=== PATIENT | female | born 1935 | race Caucasian/White ===

== ENCOUNTER → 2018-07-18 | Day surgery (SDC) | payer MEDICARE, OTHER ==
[2018-07-16 16:52] LABS: BASOPHILS # (AUTO) 0.1 (0.0-0.1); BASOPHILS % 0.6 % (0.0-1.0); EOSINOPHILS # (AUTO) 0.3 (0.0-0.4); EOSINOPHILS % 3.3 % (0.0-6.0); HEMATOCRIT 32.1 % (34.2-44.1); HEMOGLOBIN 10.1 g/dL (12.0-16.0); LYMPHOCYTES # (AUTO) 2.1 (1.0-3.2); LYMPHOCYTES % 25.4 % (18.0-39.1); MEAN CORPUSCULAR HEMOGLOBIN 31.9 pg (28-32); MEAN CORPUSCULAR HGB CONC 31.5 g/dL (31-35); MEAN CORPUSCULAR VOLUME 101.3 fL (81-99); MONOCYTES # (AUTO) 0.7 (0.2-0.8); MONOCYTES % 8.9 % (4.4-11.3); NEUTROPHILS # (AUTO) 5.1 (2.1-6.9); NEUTROPHILS % 61.4 % (38.7-80.0); PLATELET COUNT 396 x10e3/uL (140-360); RED BLOOD COUNT 3.17 x10e6/uL (3.6-5.1); RED CELL DISTRIBUTION WIDTH 13.2 % (11.7-14.4)
[~2018-07-18] MED LIST: ASPIR 8181 MG PO; BENZTROPINE MESY1 MG PO; BISACODYL5 MG PO; CARBAMAZEPINE200 MG PO; CEROVITE SENIO1 EACH PO; FENTANYL CITRATE/PF 100MCG/2 ML INJ ONE; FIBER LAXATIVE625 MG PO; KEFLEX500 MG PO; LABETALOL HCL 20 MG/4 ML SYRINGE IV ONE; MAX TOP; MELOXICAM7.5 MG PO; METFORMIN HCL500 MG PO; METHOCARBAMOL750 MG PO; NIFEDIPINE ER30 M1 PO; NORCO 7.5-3251 EACH PO; OMEGA 3 1,0001 EACH PO; OMEPRAZOLE40 MG PO; PROBIOTIC & AC1 EACH PO; PROPOFOL IV EMULSION 10 MG/ML 20 ML VIAL ONE; RISPERIDONE1 MG PO; TIZANIDINE HCL4 MG PO; TUMS PO; TYLENOL PO; ULTRAM 50MG50 MG PO; VIT C PO; VIT D3 PO; VOLTAREN100 GM TOP; [UNRECOGNIZED DRUG - OTHER] PO; [UNRECOGNIZED DRUG - OTHER] PO
--- OUTSIDE RECORDS SUMMARY | 2018-07-18 06:13 | XMS REPORT ---
[facility] Address Unknown Phone Unavailable Care Team Providers Care Sap Pi Architect Name Role Phone Kendrick LUND Unavailable Unavailable Problems This patient has no known problems. Allergies, Adverse Reactions, Alerts This patient has no known allergies or adverse reactions. Medications This patient has no known medications. Results Test Description Test Time Test Comments Text Results Atomic Results Result Comments HIPS BILAT TWO VWS(+/- PELVIS) [place] [id number] Patient Name: JERICA PILLAI V MR #: [id number] : 1935 Age/Sex: 81/F Req #: [id number] Adm Physician: Ordered by: SHARDA LUND MD Report #: [id number] Location: [facility] Room/Bed: Procedure: [id number] DX/HIPS BILAT TWO VWS(+/- PELVIS) Exam Date: Exam Time: REPORT STATUS: Signed PROCEDURE: HIPS BILAT TWO VWS(+/- PELVIS) TECHNIQUE: Single AP view of the pelvis. Right hip 2 views. Left hip 2 views INDICATION: Trauma. COMPARISON: None. FINDINGS: No fractures or dislocations. Mild degenerative changes in both SI joints. Unremarkable bilateral hips. No abnormal soft tissue swelling. CONCLUSION: Unremarkable pelvis and bilateral hips. Dictated by: Job Todd M.D. on 04/06/2017 at 17:23 Electronically approved by: Job Todd M.D. on 04/06/2017 at 17:23 Dictated By: JOB TODD MD 22 Transcribed By: RANDA on 04/06/171722 COPY TO: SHARDA LUND MD
--- OUTSIDE RECORDS SUMMARY | 2018-07-18 06:13 | XMS REPORT | Summary of Care ---
Author Author Serafin Matson, Fabiana Encinas Unknown Address Unknown Phone Unavailable Care Team Providers Care Dialysis Registered Nurse Name Role Phone JESSICA PRIETO M.D. 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 * Refills: 0 Active RisperiDONE 1 MG Oral Tablet TAKE 1 TABLET DAILY * Refills: 0 Active Vitamin D3 1000 UNIT Oral Capsule TAKE 1 CAPSULE DAILY * Refills: 0 Active [place]-3 Fish Oil CAPS TAKE 1 CAPSULE DAILY * Refills: 0 Active Vitamin C 1000 MG Oral Tablet TAKE 1 TABLET DAILY. * Refills: 0 Active Aspirin 81 MG TABS TAKE 1 TABLET DAILY. * Refills: 0 Active Benztropine Mesylate 1 MG Oral Tablet TAKE 1 TABLET TWICE DAILY NEEDED. * Refills: 0 Active CarBAMazepine 200 MG Oral Tablet TAKE 1 TABLET TWICE DAILY. * Refills: 0 Active Cerovite Senior TABS TAKE 1 TABLET DAILY. * Refills: 0 Active Diclofenac Sodium 1 % Transdermal Gel APPLY TO LOWER EXTREMITIES, 4 GM OF GEL TO AFFECTED AREA 4 TIMES DAILY. DO NOT APPLY MORE THAN 16 GM DAILY TO ANY ONE AFFECTED JOINT. * Refills: 0 Active 100 GM Tube Probiotic TBEC * Refills: 0 Active Dulcolax 5 MG Oral Tablet Delayed Release TAKE 1 TABLET DAILY NEEDED. * Refills: 0 Active Hydrocodone-Acetaminophen 5-325 MG Oral Tablet TAKE 1 TABLET EVERY 6 HOURS NEEDED. * Refills: 0 Active Tylenol 325 MG Oral Tablet * Refills: 0 Active Methocarbamol 500 MG Oral Tablet TAKE 1 TAB Q8HRS PRN * Refills: 0 Active TraMADol HCl - 50 MG Oral Tablet * Refills: 0 Active TiZANidine HCl - 2 MG Oral Capsule * Refills: 0 Active Mupirocin 2 % External Ointment APPLY SPARINGLY TO AFFECTED AREA(S) TWICE DAILY * Quantity: 1 Refills: 6 JESSICA PRIETO M.D. * Start : 11-Jul-2018 Active 22 GM Tube Allergies and Adverse Reactions Name Dates Details Depakote (Allergy) Status: Active Penicillins (Allergy) Status: Active Past Medical History Name Dates Details History of cataract (V12.49, Z86.69) Status: Resolved History of chronic fatigue (V13.89, Z87.898) Status: Resolved History of Depressive disorder (311, F32.9) Status: Resolved History of diabetes mellitus (V12.29, Z86.39) Status: Resolved Procedures Procedure Dates Details Procedures not documented Immunization Name Dates Details Immunizations not documented Family History Name Dates Details No significant family history (V49.89, Z78.9) Comments: Family History Status: Active Social History Name Dates Details - Status: Name Dates Details Never smoker Vital Signs Date Test Result Details [id number] BP Systolic 178 mm[Hg] Status: Comments: Location: [place]; BP Diastolic 76 mm[Hg] Status: Comments: Location: [place]; Height 61 in Status: Weight 158 lb Status: Body Mass Index Calculated 29.85 kg/m2 Status: Body Surface Area Calculated 1.71 m2 Status: Temperature 98.9 f Status: Comments: Method: Oral Heart Rate 92 /min Status: Comments: Location: L Brachial Artery; Results Date Description Value Details Results not documented Plan of Care Name Dates Details Planned Observations Planned Goals not documented Planned Encounters Appointment; JESSICA PRIETO M.D. On: 15-Aug-2018 14:30 Interventions Provided Medication Changes* Mupirocin 2 % External Ointment - Start Plan* 1. It is slowly healing. Will need to continue on the ointment. Fu in 1 month. Instructions Name Dates Details Instructions not documented Encounters Appointment; JESSICA PRIETO M.D. Encounter Diagnosis: Problem not documented On: 26-Mar-2018 13:00 Appointment; DANAY DIAZ M.D. Encounter Diagnosis: Problem not documented On: 28-Mar-2018 15:00 Appointment; DANAY DIAZ M.D. Encounter Diagnosis: Problem not documented On: 11-Apr-2018 10:00 Appointment; DANAY DIAZ M.D. Encounter Diagnosis: Problem not documented On: 18-Apr-2018 15:45 Appointment; DANAY DIAZ M.D. Encounter Diagnosis: Problem not documented On: 02-May-2018 14:45 Appointment; JESSICA PRIETO M.D. Encounter Diagnosis: Problem not documented On: 06-May-2018 14:00 Appointment; JESSICA PRIETO M.D. Encounter Diagnosis: Problem not documented On: 10-May-2018 13:45 Appointment; DANAY DIAZ M.D. Encounter Diagnosis: Problem not documented On: 16-May-2018 14:45 Appointment; JESSICA PRIETO M.D. Encounter Diagnosis: Problem not documented On: 17-May-2018 13:45 Appointment; JESSICA PRIETO M.D. Encounter Diagnosis: Problem not documented On: 30-May-2018 15:15 Appointment; JESSICA PRIETO M.D. Encounter Diagnosis: Problem not documented On: 11-Jul-2018 15:00
--- OUTSIDE RECORDS SUMMARY | 2018-07-18 06:13 | XMS REPORT | Clinical Summary ---
Author Author [facility] [employer] [facility] [employer] Address Unknown Phone Unavailable Care Team Providers Care Ramp Flight Attendant Name Role Phone Michelle Salazar MD PCP Allergies Comments Active Allergy Reactions Severity Noted Date dizzy Divalproex Other (See 04/13/2017 Comments) Penicillins Hives 04/13/2017 Medications End Date Status Medication Sig Dispensed Refills Start Date Active cephalexin (KEFLEX) 500 Take 500 mg 0 MG capsule by mouth 2 (two) times a day. Active metFORMIN (GLUCOPHAGE) Take 500 mg 0 500 mg tablet by mouth daily with breakfast. Active risperiDONE (RisperDAL) 1 Take 1 mg by 0 MG tablet mouth daily. Active benztropine (COGENTIN) 1 Take 1 mg by 0 MG tablet mouth 2 (two) times a day. Active carBAMazepine (TEGretol) Take 200 mg 0 200 mg tablet by mouth 2 (two) times a day. Active NIFEdipine CC (ADALAT CC) Take 60 mg by 0 60 MG 24 hr tablet mouth daily. Active tiZANidine (ZANAFLEX) 2 Take 2 mg by 0 MG tablet mouth 2 (two) times a day as needed for muscle spasms. Active traMADol (ULTRAM) 50 mg Take 50 mg by 0 tablet mouth every 6 (six) hours as needed for moderate pain. Active lubiprostone (AMITIZA) 24 Take 24 mcg 0 MCG capsule by mouth as needed for constipation. 08/15/2017 meloxicam (MOBIC) 7.5 mg Take 1 tablet 10 tablet 0 tablet (7.5 mg 8 total) by mouth daily as needed for mild pain or moderate pain for up to 30 days. 07/19/2017 acetaminophen-codeine Take 1 tablet 10 tablet 0 (TYLENOL WITH CODEINE #3) by mouth 8 300-30 mg per tablet every 6 (six) hours as needed for mild pain or moderate pain for up to 3 days. 07/23/2017 nitrofurantoin, Take 1 14 capsule 0 macrocrystal-monohydrate, capsule (100 8 (MACROBID) 100 MG capsule mg total) by mouth 2 (two) times a day for 7 days. 08/30/2017 lidocaine (LIDODERM) 5 % Place 1 patch 30 patch 0 on the skin 8 daily for 30 days. Remove & Discard patch within 12 hours or as directed by 09/01/2017 hydrocortisone-pramoxine Insert into 0 (ANALPRAM-HC) 2.5-1 % the rectum 3 8 rectal cream (three) times a day for 30 days. Active Problems Problem Noted Date Lumbar compression fracture 07/27/2017 Compression fracture of body of thoracic vertebra 07/25/2017 Encounters Care Team Description Date Type Specialty Thomas Romero MD 07/27/2017 Anesthesia General Surgery Event Trent Smith MD Al-Lahiq, Maha, MD Yerramadha, Muralidhar Reddy, MD Compression fracture of body of thoracic vertebra (Primary Dx); Essential hypertension; Thoracic compression fracture, closed, initial encounter 07/25/2017 [facility] General Surgery - Encounter 08/02/2017 after 07/17/2017 Immunizations Name Dates Previously Given Next Due Tdap 07/16/2017 Social History Date Tobacco Use Types Packs/Day Years Used Never Smoker Smokeless Tobacco: Never Used Alcohol Use Drinks/Week oz/Week Comments No Sex Assigned at Date Recorded Not on file Industry Job Start Date Occupation Not on file Not on file Not on file Travel End Travel History Travel Start No recent travel history available. Last Filed Vital Signs Time Taken Vital Sign Reading 08/02/2017 7:26 PM [facility] Blood Pressure 144/69 08/02/2017 7:26 PM [facility] Pulse 98 08/02/2017 7:26 PM [facility] Temperature 37.1 C (98.8 F) 08/02/2017 7:26 PM [facility] Respiratory Rate 13 08/02/2017 7:53 PM [facility] Oxygen Saturation 95% - Inhaled Oxygen - Concentration 07/25/2017 11:00 PM [facility] Weight 59.9 kg (132 lb) 07/25/2017 11:00 PM [facility] Height 154.9 cm (5' 1") 07/25/2017 11:00 PM [facility] Body Mass Index 24.94 Plan of Treatment Health Maintenance Due Date Last Done Comments SHINGLES VACCINES (1 of 1987 2) PNEUMOCOCCAL 2002 POLYSACCHARIDE VACCINE AGE 65 AND OVER PNEUMOCOCCAL-13 2002 INFLUENZA VACCINE 01/30/2018 Implants Device Identifier Shelf Expiration Date Model / Serial / Lot Implanted Type Area Manufactur er [id number] / / Kit Mixer Bone Cmnt Kyphon [employer] Surgical N/A: N/A KYPHON DIV Hv-R - [id number] Implants; OF Implanted: 07/27/2017 (Quantity not Expanders; [employer] on file) Extenders; SPINE Surgical Wires Procedures Comments Procedure Name Priority Date/Time Associated Diagnosis POC GLUCOSE Routine 08/02/2017 8:40 PM [facility]ASS [facility] POC GLUCOSE Routine 08/02/2017 5:37 PM [facility] POC GLUCOSE Routine 08/02/2017 12:18 PM [employer] POC GLUCOSE Routine 08/02/2017 6:00 AM [facility]ASS [facility] POC GLUCOSE Routine 08/01/2017 9:25 PM [employer] POC GLUCOSE Routine 08/01/2017 4:13 PM [facility] POC GLUCOSE Routine 08/01/2017 12:23 PM [employer] POC GLUCOSE Routine 08/01/2017 5:46 AM [facility] POC GLUCOSE Routine 07/31/2017 9:05 PM [employer] POC GLUCOSE Routine 07/31/2017 5:44 PM [employer] POC GLUCOSE Routine 07/31/2017 11:47 AM [facility] POC GLUCOSE Routine 07/31/2017 6:01 AM [facility] POC GLUCOSE Routine 07/30/2017 7:59 PM [facility] POC GLUCOSE Routine 07/30/2017 4:36 PM [facility] POC GLUCOSE Routine 07/30/2017 11:50 AM [facility] POC GLUCOSE Routine 07/30/2017 6:05 AM [facility] ZZESTIMATED GFR Routine 07/30/2017 5:12 AM [facility] HC COMPLETE BLD COUNT Routine 07/30/2017 W/AUTO DIFF 5:12 AM [facility] BASIC METABOLIC PANEL Routine 07/30/2017 5:12 AM [facility] POC GLUCOSE Routine 07/29/2017 9:21 PM [facility] POC GLUCOSE Routine 07/29/2017 6:02 PM [employer] POC GLUCOSE Routine 07/29/2017 11:51 AM [facility] POC GLUCOSE Routine 07/29/2017 6:23 AM [facility] POC GLUCOSE Routine 07/28/2017 8:23 PM [facility] POC GLUCOSE Routine 07/28/2017 4:52 PM [facility] POC GLUCOSE Routine 07/28/2017 12:17 PM [facility] POC GLUCOSE Routine 07/28/2017 6:15 AM [facility] POC GLUCOSE Routine 07/27/2017 5:16 PM [facility]ASS [facility] IR KYPHOPLASTY FST VERT Routine 07/27/2017 BODY THORA 3:45 PM [facility]ASS [facility] POC GLUCOSE Routine 07/27/2017 11:46 AM [facility]ASS [facility] POC GLUCOSE Routine 07/27/2017 5:41 AM [facility]ASS [facility] ZZESTIMATED GFR STAT 07/27/2017 5:12 AM [facility]ER PROTHROMBIN TIME WITH INR STAT 07/27/2017 5:12 AM [facility] BASIC METABOLIC PANEL STAT 07/27/2017 5:12 AM [facility] HC COMPLETE BLD COUNT STAT 07/27/2017 W/AUTO DIFF 5:12 AM [facility] THYROID STIMULATING Routine 07/27/2017 HORMONE 5:12 AM [facility] LIPID PANEL Routine 07/27/2017 5:12 AM [facility] HEMOGLOBIN A1C Routine 07/27/2017 5:12 AM [facility] POC GLUCOSE Routine 07/26/2017 8:29 PM [facility] URINALYSIS SCREEN AND Routine 07/26/2017 MICROSCOPY, WITH REFLEX 7:02 PM [facility] TO CULTURE GRAM STAIN Routine 07/26/2017 7:02 PM [facility] URINE CULTURE Routine 07/26/2017 7:02 PM [facility] XR THORACIC SPINE 3 VW Routine 07/26/2017 6:46 PM [facility] MRI THORACIC SPINE W WO Routine 07/26/2017 CONTRAST 6:35 PM [facility] MRI LUMBAR SPINE W WO Routine 07/26/2017 CONTRAST 6:30 PM [facility] POC GLUCOSE Routine 07/26/2017 4:01 PM [facility] POC GLUCOSE Routine 07/26/2017 12:54 PM [facility] ECG ED PRELIMINARY Routine 07/25/2017 INTERPRETATION 9:47 PM [facility] ECG 12-LEAD STAT 07/25/2017 9:19 PM [facility] ZZESTIMATED GFR STAT 07/25/2017 8:54 PM [facility] COMPREHENSIVE METABOLIC STAT 07/25/2017 PANEL 8:54 PM [facility] PARTIAL THROMBOPLASTIN STAT 07/25/2017 TIME (PTT) 8:54 PM [facility] PROTHROMBIN TIME WITH INR STAT 07/25/2017 8:54 PM [facility] HC COMPLETE BLD COUNT STAT 07/25/2017 W/AUTO DIFF 8:54 PM [facility]ASS [facility] TYPE AND SCREEN Routine 07/25/2017 8:[address] LUMBAR SPINE WO STAT 07/25/2017 CONTRAST 7:[address] THORACIC SPINE WO STAT 07/25/2017 CONTRAST 7:35 PM [facility] after 07/17/2017 Results * POC glucose (08/02/2017 8:40 PM GLASS [facility]KER) Only the most recent of 30 results within the time period is included. POC glucose 127 (H) 65 - 99 mg/dL [facility] DEPARTMENT OF Comment: PATHOLOGY AND Meter ID: [id number] GENOMIC MEDICINE Neurology Tech: Tai Espinoza Performing Organization Address [facility] Phone Number [facility] [address] [place] [address] [place] [address] PATHOLOGY AND [employer] MEDICINE * Estimated GFR (07/30/2017 5:12 AM GLASS [facility]KER) Only the most recent of 3 results within the time period is included. GFR Non Af Amer 53 (A) mL/min/1.73 m2 [facility] DEPARTMENT OF PATHOLOGY AND GENOMIC MEDICINE GFR Af Amer 65 mL/min/1.73 m2 [facility] DEPARTMENT OF Comment: PATHOLOGY AND Chronic kidney disease: <60 GENOMIC MEDICINE mL/min/1.73m2 Kidney failure: <15 mL/min/1.73m2 The estimated GFR is calculated from the IDMS-traceable Modification of Diet in Renal Disease Equation. The accuracy of the calculation is poor when the creatinine is normal. Calculated values >90 mL/min/1.73m2 are not reported. This equation has not been validated in children (<18 years), women, the elderly (>70 years), or ethnic groups other than Caucasians and Americans. Specimen Plasma specimen Performing Organization Address [facility] Phone Number [facility] [place] [id number] [place] [address] [place] [address] PATHOLOGY AND [employer] MEDICINE * CBC with platelet and differential (07/30/2017 5:12 AM GLASS [facility]KER) Only the most recent of 3 results within the time period is included. WBC 9.90 4.50 - 11.00 k/uL [facility] DEPARTMENT OF PATHOLOGY AND [employer] MEDICINE RBC 3.23 (L) 4.20 - 5.50 m/uL [facility] DEPARTMENT OF PATHOLOGY AND GENOMIC MEDICINE HGB 10.4 (L) 12.0 - 16.0 g/dL [facility] DEPARTMENT OF PATHOLOGY AND GENOMIC MEDICINE HCT 32.2 (L) 37.0 - 47.0 % [facility] DEPARTMENT OF PATHOLOGY AND GENOMIC MEDICINE MCV 99.7 82.0 - 100.0 fL [facility] DEPARTMENT OF PATHOLOGY AND GENOMIC MEDICINE MCH 32.2 27.0 - 34.0 pg [facility] DEPARTMENT OF PATHOLOGY AND GENOMIC MEDICINE MCHC 32.3 31.0 - 37.0 g/dL [facility] DEPARTMENT OF PATHOLOGY AND GENOMIC MEDICINE RDW - SD 46.5 37.0 - 55.0 fL [facility] DEPARTMENT OF PATHOLOGY AND GENOMIC MEDICINE MPV 9.0 8.8 - 13.2 fL [facility] DEPARTMENT OF PATHOLOGY AND GENOMIC MEDICINE Platelet count 431 (H) 150 - 400 k/uL [facility] DEPARTMENT OF PATHOLOGY AND GENOMIC MEDICINE Nucleated RBC 0.00 /100 WBC [facility] DEPARTMENT OF PATHOLOGY AND GENOMIC MEDICINE Neutrophils 66.8 39.0 - 69.0 % [facility] DEPARTMENT OF PATHOLOGY AND GENOMIC MEDICINE Lymphocytes 21.2 (L) 25.0 - 45.0 % [facility] DEPARTMENT OF PATHOLOGY AND GENOMIC MEDICINE Monocytes 8.1 0.0 - 10.0 % [facility] DEPARTMENT OF PATHOLOGY AND GENOMIC MEDICINE Eosinophils 2.9 0.0 - 5.0 % [facility] DEPARTMENT OF PATHOLOGY AND GENOMIC MEDICINE Basophils 0.6 0.0 - 1.0 % [facility] DEPARTMENT OF PATHOLOGY AND GENOMIC MEDICINE Immature granulocytes 0.4Comment: "Immature 0.0 - 1.0 % [facility] DEPARTMENT OF granulocytes" (promyelocytes, PATHOLOGY AND myelocytes, metamyelocytes) [facility] Specimen Blood Performing Organization Address City/State/Zipcode Phone Number [facility] [place] [place] [address] [place] [address] PATHOLOGY AND GENOMIC MEDICINE * Basic metabolic panel (07/30/2017 5:12 AM GLASS [facility]KER) Only the most recent of 2 results within the time period is included. Sodium 137 135 - 148 mEq/L [facility] DEPARTMENT OF PATHOLOGY AND GENOMIC MEDICINE Potassium 4.4 3.5 - 5.0 mEq/L [facility] DEPARTMENT OF PATHOLOGY AND GENOMIC MEDICINE Chloride 97 (L) 98 - 112 mEq/L [facility] DEPARTMENT OF PATHOLOGY AND GENOMIC MEDICINE CO2 28 24 - 31 mEq/L [facility] DEPARTMENT OF PATHOLOGY AND GENOMIC MEDICINE Anion gap 12 7 - 15 mEq/L [facility] DEPARTMENT OF Comment: PATHOLOGY AND Starting from September [facility] , anion gap calculation no longer incorporates potassium. Please note the change. BUN 24 (H) 8 - 23 mg/dL [facility] DEPARTMENT OF PATHOLOGY AND GENOMIC MEDICINE Creatinine 1.0 (H) 0.5 - 0.9 mg/dL [facility] OF PATHOLOGY AND GENOMIC MEDICINE Glucose 108 (H) 65 - 99 mg/dL [facility] OF PATHOLOGY AND GENOMIC MEDICINE Calcium 9.3 8.8 - 10.2 mg/dL [facility] PATHOLOGY AND GENOMIC MEDICINE Specimen Plasma specimen Performing Organization Address City/State/Zipcode Phone Number [facility] [address] [address] PATHOLOGY AND GENOMIC MEDICINE * IR Kyphoplasty Thoracic (07/27/2017 3:45 PM GLASS MAKER) Narrative Performed At EXAMINATION:IR KYPHOPLASTY FST VERT BODY THORA [facility] EXAMINATION:IR KYPHOPLASTY FST VERT BODY THORA COMPARISON:None. CLINICAL HISTORY: Osteoporotic compression fracture of [id number] body not responsive to conservative therapy including bed rest and narcotic pain meds PREOPERATIVE DIAGNOSIS: Osteoporotic compression fracture of T8. POSTOPERATIVE DIAGNOSIS: Same. After discussion of the radiographic findings, along with the risks and benefits of the procedure with the patient and her daughter, the patient wished to proceed. The patient understood the risks and benefits of the procedure. Written informed consent was obtained. Prior to the procedure formal timeout procedure was performed. All elements of maximal sterile barrier technique were utilized. Prior to the procedure the patient was medicated with 600 mg of clindamycin intravenously Study was performed utilizing MAC under the supervision of the attending anesthesiologist TECHNIQUE: The patient was brought to the Fluoroscopy Suite and placed on the fluoroscopy table in prone position. The thoracolumbar region was prepped and draped in standard sterile fashion. Initially severe compressive deformity at T8 in the range of 60% was identified and marked on the skin surface. Transpedicular approach was utilized to access the [id number] compression fracture bilaterally. The skin over the pedicles of [id number] were infiltrated with 1% buffered lidocaine. Deep infiltration into the periosteum was achieved with 0.25% bupivacaine. A 10 gauge entry needle was placed into the posterior aspect of the body of T8 bilaterally via transpedicular approach taking care to avoid broaching the pedicle valdez. Positioning was confirmed in both AP and lateral planes. Bone drills were utilized to create channels through each trocar under continuous fluoroscopic visualization. Following creation of the channels, inflatable balloon tamps were introduced into the vertebral body through each trocar and inflated. No cortical breakthrough identified. Moderate fracture height hoahaoism noted. Subsequently the balloon were deflated and removed. Polymethylmethacrylate (PMMA) was then placed into the vertebral body cavity under continuous fluoroscopic imaging. Approximately 2.5 cc of cement placed. Good cement fill in AP and transverse dimensions with good coverage of the anterior and middle columns of the vertebral body. No extravasation. Following cement placement, the bilateral access trochars were removed and hemostasis was achieved with adequate pressure. Total cement volume placed was 2.5 cc. BLOOD LOSS: Less than 2 cc COMPLICATIONS: None POST-PROCEDURE: All incisions were closed with Steri-Strips and pressure dressing. The patient was then turned supine on their hospital bed. The patient was awake and moving all extremities and at this time showed no neurologic deficit. Total fluoroscopic time was 12minutes and 34 seconds. 20 exposures. Procedure time was 24 minutes. IMPRESSION: Successful uncomplicated fluoroscopic-guided kyphoplasty of [id number] fracture. Adequate cement distribution in the vertebral body without extravasation. Moderate height hoahaoism No complications. [id number] Procedure Note Hm Interface, Radiology Results Incoming - 07/27/2017 6:10 PM GLASS [facility]KER EXAMINATION: IR KYPHOPLASTY FST VERT BODY THORA EXAMINATION: IR KYPHOPLASTY FST VERT BODY THORA COMPARISON: None. CLINICAL HISTORY: Osteoporotic compression fracture of T8 vertebral body not responsive to conservative therapy including bed rest and narcotic pain meds PREOPERATIVE DIAGNOSIS: Osteoporotic compression fracture of T8. POSTOPERATIVE DIAGNOSIS: Same. After discussion of the radiographic findings, along with the risks and benefits of the procedure with the patient and her daughter, the patient wished to proceed. The patient understood the risks and benefits of the procedure. Written informed consent was obtained. Prior to the procedure formal timeout procedure was performed. All elements of maximal sterile barrier technique were utilized. Prior to the procedure the patient was medicated with 600 mg of clindamycin intravenously Study was performed utilizing MAC under the supervision of the attending anesthesiologist TECHNIQUE: The patient was brought to the Fluoroscopy Suite and placed on the fluoroscopy table in prone position. The thoracolumbar region was prepped and draped in standard sterile fashion. Initially severe compressive deformity at T8 in the range of 60% was identified and marked on the skin surface. Transpedicular approach was utilized to access the T8 vertebral compression fracture bilaterally. The skin over the pedicles of T8 level were infiltrated with 1% buffered lidocaine. Deep infiltration into the periosteum was achieved with 0.25% bupivacaine. A 10 gauge entry needle was placed into the posterior aspect of the body of T8 bilaterally via transpedicular approach taking care to avoid broaching the pedicle valdez. Positioning was confirmed in both AP and lateral planes. Bone drills were utilized to create channels through each trocar under continuous fluoroscopic visualization. Following creation of the channels, inflatable balloon tamps were introduced into the vertebral body through each trocar and inflated. No cortical breakthrough identified. Moderate fracture height hoahaoism noted. Subsequently the balloon were deflated and removed. Polymethylmethacrylate (PMMA) was then placed into the vertebral body cavity under continuous fluoroscopic imaging. Approximately 2.5 cc of cement placed. Good cement fill in AP and transverse dimensions with good coverage of the anterior and middle columns of the vertebral body. No extravasation. Following cement placement, the bilateral access trochars were removed and hemostasis was achieved with adequate pressure. Total cement volume placed was 2.5 cc. BLOOD LOSS: Less than 2 cc COMPLICATIONS: None POST-PROCEDURE: All incisions were closed with Steri-Strips and pressure dressing. The patient was then turned supine on their hospital bed. The patient was awake and moving all extremities and at this time showed no neurologic deficit. Total fluoroscopic time was 12 minutes and 34 seconds. 20 exposures. Procedure time was 24 minutes. IMPRESSION: Successful uncomplicated fluoroscopic-guided kyphoplasty of T8 compression fracture. Adequate cement distribution in the vertebral body without extravasation. Moderate height hoahaoism No complications. [id number] Performing Organization Address City/State/Zipcode Phone Number [facility] [address] [place] [address] * Prothrombin time with INR (07/27/2017 5:12 AM GLASS [facility]KER) Only the most recent of 2 results within the time period is included. Prothrombin time 12.2 12.0 - 15.0 sec [facility] DEPARTMENT OF PATHOLOGY AND GENOMIC MEDICINE INR 0.9 [facility] DEPARTMENT OF Comment: PATHOLOGY AND The International Normalized GENOMIC MEDICINE Ratio (INR) is a therapeutic monitoring tool for patients who are stable on oral anticoagulant therapy. An INR of 2.0-3.0 is suggested for deep vein thrombosis/pulmonary embolism. Specimen Blood Performing Organization Address [facility] Phone Number [address] [place] [address] PATHOLOGY AND GENOMIC MEDICINE * Thyroid stimulating hormone (07/27/2017 5:12 AM GLASS MAKER) TSH 4.11 0.27 - 4.20 uIU/mL [facility] DEPARTMENT OF PATHOLOGY AND GENOMIC MEDICINE Specimen Plasma specimen Performing Organization Address [facility] Phone Number [address] [place] [address] PATHOLOGY AND GENOMIC MEDICINE * Hemoglobin A1c (07/27/2017 5:12 AM GLASS [facility]KER) Hemoglobin A1C 4.9 4.0 - 6.0 % [facility] DEPARTMENT OF Comment: PATHOLOGY AND GENOMIC MEDICINE Less than 6% - Goal of therapy for Type II Diabetes Less than 7%-Goal of therapy for Type I Diabetes Less than 8%-Accepta ble control for Type I or Type II Diabetes Greater than 8%-Unacceptabl e control; action indicated. ([id number]) Specimen Blood Performing Organization Address [facility] Phone Number [address] [place] [id number] PATHOLOGY AND GENOMIC MEDICINE * Lipid panel (07/27/2017 5:12 AM GLASS MAKER) Cholesterol 286 (H) <200 mg/dL [facility] DEPARTMENT OF PATHOLOGY AND GENOMIC MEDICINE Triglycerides 248 (H) <150 mg/dL [facility] DEPARTMENT OF PATHOLOGY AND GENOMIC MEDICINE HDL cholesterol 52 >40 mg/dL [facility] DEPARTMENT OF PATHOLOGY AND GENOMIC MEDICINE LDL cholesterol 203 (H)Comment: Result <100 mg/dL [facility] DEPARTMENT OF obtained by direct LDL PATHOLOGY AND measurement GENOMIC MEDICINE Lipid panel SeeBelow [facility] DEPARTMENT OF interpretation Comment: PATHOLOGY AND Total Cholesterol GENOMIC MEDICINE (mg/dL) <200 Desirable 200-239Borderline -high >=240High Triglycerides (mg/dL) <150 Normal 150-199Borderline -high 200-499High >=500Very high HDL Cholesterol (mg/dL) <40Low (male) <40Low (female) LDL Cholesterol (mg/dL) <100 Optimal 100-129Near or above optimal 130-159Borderline -high 160-189High >=190Very high Risk Catergories that modify LDL goals. Risk Catergories LDL goal (mg/dL) CHD and CHD risk equivalent<100 (10-year risk >20%) Multiple (2+) risk factors <130 (10-year risk=<20%) 0-1 risk factors <160 (<10-year risk) Defining levels of lipids in metabolic syndrome Triglycerides >=150 mg/dL HDL Cholesterol Men <40 mg/dL Women <40 mg/dL Non-HDL cholesterol is a second target for therapy in persons with high triglycerides (>=200 mg/dL) Specimen Plasma specimen Performing Organization Address City/State/Zipcode Phone Number [facility] [address] [place] [address] PATHOLOGY AND GENOMIC MEDICINE * Urinalysis screen and microscopy, with reflex to culture (07/26/2017 7:02 PM GLASS MAKER) Specimen site Clean catch [facility] DEPARTMENT OF PATHOLOGY AND GENOMIC MEDICINE Color, UA Yellow [facility] DEPARTMENT OF PATHOLOGY AND GENOMIC MEDICINE Appearance, UA Clear [facility] DEPARTMENT OF PATHOLOGY AND GENOMIC MEDICINE Specific gravity, UA 1.015 1.001 - 1.035 [facility] DEPARTMENT OF PATHOLOGY AND GENOMIC MEDICINE pH, UA 6.0 5.0 - 8.5 [facility] DEPARTMENT OF PATHOLOGY AND GENOMIC MEDICINE Protein, UA Negative Negative [facility] DEPARTMENT OF PATHOLOGY AND GENOMIC MEDICINE Glucose, UA Negative Negative [facility] DEPARTMENT OF PATHOLOGY AND GENOMIC MEDICINE Ketones, UA Negative Negative [facility] DEPARTMENT OF PATHOLOGY AND GENOMIC MEDICINE Bilirubin, UA Negative Negative [facility] DEPARTMENT OF PATHOLOGY AND GENOMIC MEDICINE Blood, UA Negative Negative [facility] DEPARTMENT OF PATHOLOGY AND GENOMIC MEDICINE Nitrite, UA Negative Negative [facility] DEPARTMENT OF PATHOLOGY AND GENOMIC MEDICINE Urobilinogen, UA Negative <2.0 [facility] DEPARTMENT OF PATHOLOGY AND GENOMIC MEDICINE Leukocyte esterase, UA Small (A) Negative [facility] DEPARTMENT OF PATHOLOGY AND GENOMIC MEDICINE Epithelial cells, UA Many /HPF [facility] DEPARTMENT OF PATHOLOGY AND GENOMIC MEDICINE WBC, UA 6-10 (H) 0 - 4 /HPF [facility] DEPARTMENT OF PATHOLOGY AND GENOMIC MEDICINE RBC, UA 0-5 0 - 2 /HPF [facility] DEPARTMENT OF PATHOLOGY AND GENOMIC MEDICINE Bacteria, UA None seen None seen [facility] DEPARTMENT OF PATHOLOGY AND GENOMIC MEDICINE Yeast, UA None seen [facility] DEPARTMENT OF PATHOLOGY AND GENOMIC MEDICINE Yeast with pseudohyphae, None seen [facility] DEPARTMENT OF UA PATHOLOGY AND GENOMIC MEDICINE Specimen Urine Performing Organization Address City/State/Zipcode Phone Number [facility] [place] [place] [address] [place] [address] PATHOLOGY AND GENOMIC MEDICINE * Gram stain (07/26/2017 7:02 PM GLASS MAKER) Gram stain result No WBC's or organisms seen. [facility] DEPARTMENT OF Comment: PATHOLOGY AND Specimen Information GENOMIC MEDICINE Specimen Source: Urine Specimen Site: See UA Specimen Urine Performing Organization Address City/State/Zipcode Phone Number [facility] DEPARTMENT OF [address] [place] [address] PATHOLOGY AND GENOMIC MEDICINE * Urine culture (07/26/2017 7:02 PM GLASS MAKER) Urine culture isolate Mixed Gram positive andreia [facility] DEPARTMENT OF colony count undetermined, PATHOLOGY AND probably due to inhibiting GENOMIC MEDICINE substance. (A) Comment: Specimen Information Specimen Source: Urine Specimen Site: See UA Specimen Urine Performing Organization Address City/State/Zipcode Phone Number [facility] DEPARTMENT OF [address] [place] [address] PATHOLOGY AND GENOMIC MEDICINE * XR Thoracic Spine 3 Vw (07/26/2017 6:46 PM GLASS MAKER) Narrative Performed At EXAMINATION:XR THORACIC SPINE 3 VW RADIANT CLINICAL HISTORY:compression fracture COMPARISON:None. IMPRESSION: There is diffuse demineralization. There is a grade 2-3 compression fracture deformity of the T8 vertebral body of uncertain age.. There is no gross evidence of bony retropulsion. There is disc space narrowing in the midthoracic region. There is aortic arch and descending thoracic aortic calcification without aneurysmal dilatation. There is calcification in the splenic artery. [facility]-[id number] Procedure Note Interface, Radiology Results Incoming - 07/26/2017 7:17 PM [facility]KER EXAMINATION: XR THORACIC SPINE 3 VW CLINICAL HISTORY: compression fracture COMPARISON: None. IMPRESSION: There is diffuse demineralization. There is a grade 2-3 compression fracture deformity of the T8 vertebral body of uncertain age.. There is no gross evidence of bony retropulsion. There is disc space narrowing in the midthoracic region. There is aortic arch and descending thoracic aortic calcification without aneurysmal dilatation. There is calcification in the splenic artery. [facility]-[id number] Performing Organization Address City/[facility]/Zipcode Phone Number [facility] [address] [place] [address] * MRI Thoracic Spine W Wo Contrast (07/26/2017 6:35 PM GLASS MAKER) Narrative Performed At EXAMINATION:MRI THORACIC SPINE W WO CONTRAST RADIANT CLINICAL HISTORY:vertebral fracture COMPARISON:CT of the thoracic spine dated July 25, 2017 TECHNIQUE: Multiplanar MRI imagingwith and without IV Gadolinium was performed. IMPRESSION: Acute biconcave compression fracture of T8 vertebral body with 50% central height loss and minimal retropulsion with no canal compromise. The fracture appears to be amenable for image guided cement augmentation if clinically warranted. There no associated paravertebral edema and slight hematoma. The remaining thoracic vertebral bodies are intact with no other acute compression fractures. There is a minimal superior endplate chronic compression deformity involving T4 vertebral body. The thoracic spinal cord demonstrates normal contour and signal with no focal lesion. The thoracic spine canal is patent with no canal stenosis or foraminal narrowing. Bilateral pleural effusion right more than the left. [facility]-[id number] Procedure Note Hm Interface, Radiology Results Incoming - 07/26/2017 6:47 PM [facility]KER EXAMINATION: MRI THORACIC SPINE W WO CONTRAST CLINICAL HISTORY: vertebral fracture COMPARISON: CT of the thoracic spine dated July 25, 2017 TECHNIQUE: Multiplanar MRI imaging with and without IV Gadolinium was performed. IMPRESSION: Acute biconcave compression fracture of T8 vertebral body with 50% central height loss and minimal retropulsion with no canal compromise. The fracture appears to be amenable for image guided cement augmentation if clinically warranted. There no associated paravertebral edema and slight hematoma. The remaining thoracic vertebral bodies are intact with no other acute compression fractures. There is a minimal superior endplate chronic compression deformity involving T4 vertebral body. The thoracic spinal cord demonstrates normal contour and signal with no focal lesion. The thoracic spine canal is patent with no canal stenosis or foraminal narrowing. Bilateral pleural effusion right more than the left. [facility]-[id number] Performing Organization Address City/[facility]/Zipcode Phone Number [address] [place] [address] * MRI Lumbar Spine W Wo Contrast (07/26/2017 6:30 PM GLASS MAKER) Narrative Performed At EXAMINATION:MRI LUMBAR SPINE W WO CONTRAST HM RADIANT COMPARISON:[address] CLINICAL HISTORY:vertebral fracture FINDINGS: L1-2: The disc is unremarkable without bulge or protrusion. The neural foramina are patent. The facets are unremarkable. L2-3: The disc is unremarkable without bulge or protrusion. The neural foramina are patent. The facets are unremarkable. L3-4: The disc is unremarkable without bulge or protrusion. The neural foramina are patent. The facets are unremarkable. L4-5: As noted on the CT there is a mild bulge which in combination with facet hypertrophy and ligamentum flavum thickening results in mild spinal stenosis. There are bilateral facet joint effusions. L5-S1: The disc is unremarkable without bulge or protrusion. The neural foramina are patent. There is marked degenerative facet change with bilateral effusions. Contrary to the impression on the CT there is no S1 lateral recess stenosis. There is no malalignment, and the spinal canal is of normal diameter. The conus medullaris and nerve roots are unremarkable. The bone marrow is normal without evidence of fracture.. IMPRESSION: 1. Negative for fracture. 2. Marked bilateral L4-5 and L5-S1 degenerative facet change. [facility]-[id number] Procedure Note Interface, Radiology Results Incoming - 07/26/2017 6:45 PM GLASS [facility]KER EXAMINATION: MRI LUMBAR SPINE W WO CONTRAST COMPARISON: [address] CLINICAL HISTORY: vertebral fracture FINDINGS: L1-2: The disc is unremarkable without bulge or protrusion. The neural foramina are patent. The facets are unremarkable. L2-3: The disc is unremarkable without bulge or protrusion. The neural foramina are patent. The facets are unremarkable. L3-4: The disc is unremarkable without bulge or protrusion. The neural foramina are patent. The facets are unremarkable. L4-5: As noted on the CT there is a mild bulge which in combination with facet hypertrophy and ligamentum flavum thickening results in mild spinal stenosis. There are bilateral facet joint effusions. L5-S1: The disc is unremarkable without bulge or protrusion. The neural foramina are patent. There is marked degenerative facet change with bilateral effusions. Contrary to the impression on the CT there is no S1 lateral recess stenosis. There is no malalignment, and the spinal canal is of normal diameter. The conus medullaris and nerve roots are unremarkable. The bone marrow is normal without evidence of fracture.. IMPRESSION: 1. Negative for fracture. 2. Marked bilateral L4-5 and L5-S1 degenerative facet change. [facility]-[id number] Performing Organization Address [facility] Phone Number [facility] [address] [place] [address] * ECG ED Preliminary Interpretation - NOT AN ORDER (07/25/2017 9:47 PM GLASS MAKER) Narrative Performed At Trent Smith MD 07/25/20179:47 PM ECG ED Preliminary Interpretation - Not an Order Performed by: TRENT SMITH Authorized by: TRENT SMITH Previous ECG: Previous ECG:Compared to current Interpretation: Interpretation: normal Rate: ECG rate:75 ECG rate assessment: normal Rhythm: Rhythm: sinus rhythm Ectopy: Ectopy: none QRS: QRS axis:Normal QRS intervals:Normal Conduction: Conduction: normal ST segments: ST segments:Normal T waves: T waves: inverted Inverted:III * ECG 12 lead (07/25/2017 9:19 PM GLASS MAKER) Ventricular rate 75 [facility] Atrial rate 75 [facility] GA interval 176 [facility] QRSD interval 116 [facility] QT interval 410 [facility] QTC interval 457 [facility] P axis 1 54 [facility] QRS axis 1 -57 [facility] T wave axis -10 [facility] EKG impression Normal sinus rhythm-Left [facility] MUSE anterior fascicular block-Left ventricular hypertrophy with QRS widening-Possible Lateral infarct (cited on or before 28-APR-2017)-Abnormal ECG-In automated comparison with ECG of 28-APR-2017 19:05,-No significant change was found- Performing Organization Address [facility] Phone Number [facility] [address] [place] [address] * Partial thromboplastin time, activated (07/25/2017 8:54 PM GLASS [facility]KER) PTT 28.2 23.0 - 36.0 sec [facility] DEPARTMENT OF Comment: PATHOLOGY AND PTT therapeutic range for GENOMIC MEDICINE unfractionated heparin is 61.0-112.0 seconds which corresponds to Anti-Xa 0.3-0.7 U/ml. Specimen Blood Performing Organization Address City/State/Zipcode Phone Number [facility] [place] [place] [address] [place] [address] PATHOLOGY AND GENOMIC MEDICINE * Comprehensive metabolic panel (07/25/2017 8:54 PM GLASS MAKER) Sodium 143 135 - 148 mEq/L [facility] DEPARTMENT OF PATHOLOGY AND GENOMIC MEDICINE Potassium 3.8 3.5 - 5.0 mEq/L [facility] DEPARTMENT OF PATHOLOGY AND GENOMIC MEDICINE Chloride 100 98 - 112 mEq/L [facility] DEPARTMENT OF PATHOLOGY AND GENOMIC MEDICINE CO2 28 24 - 31 mEq/L [facility] DEPARTMENT OF PATHOLOGY AND GENOMIC MEDICINE Anion gap 15 7 - 15 mEq/L [facility] DEPARTMENT OF Comment: PATHOLOGY AND Starting from September GENOMIC MEDICINE , anion gap calculation no longer incorporates potassium. Please note the change. BUN 26 (H) 8 - 23 mg/dL [facility] DEPARTMENT OF PATHOLOGY AND GENOMIC MEDICINE Creatinine 1.0 (H) 0.5 - 0.9 mg/dL [facility] DEPARTMENT OF PATHOLOGY AND GENOMIC MEDICINE Glucose 104 (H) 65 - 99 mg/dL [facility] DEPARTMENT OF PATHOLOGY AND GENOMIC MEDICINE Calcium 9.8 8.8 - 10.2 mg/dL [facility] DEPARTMENT OF PATHOLOGY AND GENOMIC MEDICINE Protein 7.3 6.3 - 8.3 g/dL [facility] DEPARTMENT OF Comment: PATHOLOGY AND GENOMIC MEDICINE 4.6-7.0 g/dL 1 week 4.4-7.6 g/dL 7 months-1year 5.1-7.3 g/dL 1-2 years5.6-7 .5 g/dL >3 years6.0-8 .0 g/dL 18-150 6.3-8.3 g/dL Albumin 3.8 3.5 - 5.0 g/dL [facility] DEPARTMENT OF PATHOLOGY AND GENOMIC MEDICINE A/G ratio 1.1 0.7 - 3.8 [facility] DEPARTMENT OF PATHOLOGY AND GENOMIC MEDICINE Alkaline phosphatase 112 (H) 35 - 104 U/L [facility] DEPARTMENT OF PATHOLOGY AND GENOMIC MEDICINE AST 22 10 - 35 U/L [facility] DEPARTMENT OF PATHOLOGY AND GENOMIC MEDICINE ALT 26 5 - 50 U/L [facility] DEPARTMENT OF PATHOLOGY AND GENOMIC MEDICINE Total bilirubin <0.2 0.0 - 1.2 mg/dL [facility] DEPARTMENT OF PATHOLOGY AND GENOMIC MEDICINE Specimen Plasma specimen Performing Organization Address City/[facility]/Zipcode Phone Number [facility] [place] [place] [address] [place] [address] PATHOLOGY AND GENOMIC MEDICINE * Type and screen (07/25/2017 8:34 PM GLASS MAKER) ABO grouping O [facility] DEPARTMENT OF PATHOLOGY AND GENOMIC MEDICINE Rh type POS [facility] DEPARTMENT OF PATHOLOGY AND GENOMIC MEDICINE Antibody screen NEG [facility] DEPARTMENT OF PATHOLOGY AND GENOMIC MEDICINE Specimen Blood Performing Organization Address [facility] Phone Number [facility] [place] [place] [address] [place] [address] PATHOLOGY AND GENOMIC MEDICINE * CT Lumbar Spine Wo Contrast (07/25/2017 7:35 PM GLASS MAKER) Narrative Performed At EXAMINATION:CT LUMBAR SPINE WO CONTRAST HM RADIANT CLINICAL HISTORY:traumapain COMPARISON:None. TECHNIQUE: Axial helical CT images throughout theLUMBAR spine were performedwithout contrast. Sagittal and coronal reformatted images were generated. CT scans are performed using radiation dose reduction techniques. Technical factors are evaluated and adjusted to ensure appropriate moderation of exposure. Automated dose management technology is applied to adjust radiation exposure while achieving a highly diagnostic quality image. FINDINGS: Sagittal image reconstructions demonstrate normal alignment without evidence of spondylolisthesis or compression fracture. L5-S1: There are prominent bilateral facet hypertrophic changes with bilateral lateral recess stenosis and mild multilateral central canal stenosis. L4-5: There is annular bulging and spondylosis with mild multifactorial central canal stenosis. Graft L3-4: There are mild spondylotic changes on the right without significant stenosis. L2-3: There is no significant bulge or stenosis. L1-2: No central T12-L1: No significant bulge or stenosis. No evidence of compression fracture. IMPRESSION: Mild multifactorial central canal stenosis at L4-5 and L5-S1. Moderate bilateral lateral recess stenosis at S1. No evidence of acute compression fracture. [facility]-[id number] Procedure Note Hm Interface, Radiology Results Incoming - 07/25/2017 7:45 PM GLASS [facility]KER EXAMINATION: CT LUMBAR SPINE WO CONTRAST CLINICAL HISTORY: trauma pain COMPARISON: None. TECHNIQUE: Axial helical CT images throughout the LUMBAR spine were performed without contrast. Sagittal and coronal reformatted images were generated. CT scans are performed using radiation dose reduction techniques. Technical factors are evaluated and adjusted to ensure appropriate moderation of exposure. Automated dose management technology is applied to adjust radiation exposure while achieving a highly diagnostic quality image. FINDINGS: Sagittal image reconstructions demonstrate normal alignment without evidence of spondylolisthesis or compression fracture. L5-S1: There are prominent bilateral facet hypertrophic changes with bilateral lateral recess stenosis and mild multilateral central canal stenosis. L4-5: There is annular bulging and spondylosis with mild multifactorial central canal stenosis. Graft L3-4: There are mild spondylotic changes on the right without significant stenosis. L2-3: There is no significant bulge or stenosis. L1-2: No central T12-L1: No significant bulge or stenosis. No evidence of compression fracture. IMPRESSION: Mild multifactorial central canal stenosis at L4-5 and L5-S1. Moderate bilateral lateral recess stenosis at S1. No evidence of acute compression fracture. [facility]-[id number] Performing Organization Address City/State/Zipcode Phone Number [facility] [address] [place] [address] * CT Thoracic Spine Wo Contrast (07/25/2017 7:35 PM GLASS MAKER) Narrative Performed At EXAMINATION: CT THORACIC SPINE WO CONTRAST RADIANT CLINICAL HISTORY: traumapain COMPARISON:07/16/2017 thoracic radiograph TECHNIQUE: Noncontrast enhanced imaging through the thoracic spine was performed with coronal and sagittal reconstructed images. CT scans are performed using radiation dose reduction techniques (iterative reconstruction and/or automated exposure control). Technical factors are evaluated and adjusted to ensure appropriate moderation of exposure. Automated dose management technology is applied to adjust radiation exposure while achieving a diagnostic quality image. FINDINGS: There is a compression deformity at T8 resulting in approximately 50-60 % height loss. This appears progressed when compared to the radiograph performed 07/16/2017, and is therefore acute. There is very subtle retropulsion of the posterior endplate which results in mild central stenosis. Otherwise, there are no acute abnormalities. Alignment is maintained. Degenerative changes: Nonsignificant. Other findings: Trace right pleural effusion. Hiatal hernia. IMPRESSION: T8 vertebral body compression deformity results in 50-60% height loss. This has progressed when compared to the prior radiograph and is therefore acute. [facility]-[id number] Procedure Note Interface, Radiology Results Incoming - 07/25/2017 7:49 PM GLASS [facility]KER EXAMINATION: CT THORACIC SPINE WO CONTRAST CLINICAL HISTORY: trauma pain COMPARISON: 07/16/2017 thoracic radiograph TECHNIQUE: Noncontrast enhanced imaging through the thoracic spine was performed with coronal and sagittal reconstructed images. CT scans are performed using radiation dose reduction techniques (iterative reconstruction and/or automated exposure control). Technical factors are evaluated and adjusted to ensure appropriate moderation of exposure. Automated dose management technology is applied to adjust radiation exposure while achieving a diagnostic quality image. FINDINGS: There is a compression deformity at T8 resulting in approximately 50-60 % height loss. This appears progressed when compared to the radiograph performed 07/16/2017, and is therefore acute. There is very subtle retropulsion of the posterior endplate which results in mild central stenosis. Otherwise, there are no acute abnormalities. Alignment is maintained. Degenerative changes: Nonsignificant. Other findings: Trace right pleural effusion. Hiatal hernia. IMPRESSION: T8 vertebral body compression deformity results in 50-60% height loss. This has progressed when compared to the prior radiograph and is therefore acute. [facility]-[id number] Performing Organization Address City/State/Zipcode Phone Number [facility] [address] [place] [address] after 07/17/2017 Insurance Payer Benefit Subscriber ID Type Phone Address Plan / Group [employer] MEDICARE HUMANA xxxxxxxxx PPO MEDICARE PPO/PFFS/E [facility] Advance Directives Patient has advance care planning documents on file. For more information, sixto e contact: Simeon Salazar [address] [place] [address]
[2018-07-18 09:15] VITALS: BP 167/74
== END | disposition home or self-care (01) ==
LOC: OR 06:10
PROVIDERS: ATTEND Internal Medicine Gastroenterology
DX: K22.2 Esophageal obstruction (principal); E66.3 Overweight; K29.70 Gastritis, unspecified, without bleeding; K21.9 Gastro-esophageal reflux disease without esophagitis; K44.9 Diaphragmatic hernia without obstruction or gangrene; Z71.3 Dietary counseling and surveillance; I10 Essential (primary) hypertension; I44.4 Left anterior fascicular block; E11.9 Type 2 diabetes mellitus without complications; Z88.6 Allergy status to analgesic agent; Z88.0 Allergy status to penicillin; Z01.810 Encounter for preprocedural cardiovascular examination; Z01.812 Encounter for preprocedural laboratory examination; Z79.82 Long term (current) use of aspirin; Z79.84 Long term (current) use of oral hypoglycemic drugs; Z68.26 Body mass index [BMI] 26.0-26.9, adult; Z86.73 Personal history of transient ischemic attack (TIA), and cerebral infarction without residual deficits
CPT/HCPCS: 36415 ×2; 43239; 43249; 82948; 85025; 93005; J2704; 43233